=== PATIENT | female | born 1940 | race Caucasian/White ===

== ENCOUNTER 2023-11-24 06:14 | Inpatient (IN) | payer MEDICARE, OTHER, SELFPAY ==
[2023-11-18 09:09] LABS: Hematocrit 44.3 % (37.0-47.0); Hemoglobin 15.2 g/dL (12.0-16.0); Mean Corp Hgb Conc. 34.3 g/dL (33.0-37.0); Mean Corpuscular Hgb 31.5 pg (27.0-31.0); Mean Corpuscular Volume 91.7 fL (81.0-99.0); Mean Platelet Volume 10.8 fL (7.4-10.4); Platelet Count 271 10^3/uL (130-400); Red Blood Cell Count 4.83 10^6/uL (4.20-5.40); Red Cell Dist. Width 13.2 % (11.5-14.5); White Blood Cell Count 6.5 10^3/uL (4.8-10.8)
[2023-11-18 09:16] LABS: INR 1.03; PT 13.3 Sec (11.4-14.6)
[2023-11-18 09:17] LABS: APTT 33.2 Sec (23.4-35.0)
[2023-11-18 09:30] LABS: ALT (SGPT) 14 U/L (0-35); AST (SGOT) 20 U/L (14-36); Albumin 4.1 g/dl (3.5-5.0); Alkaline Phosphatase 89 U/L (38-126); Blood Urea Nitrogen 16 mg/dl (7-17); Calcium 10.1 mg/dl (8.4-10.2); Carbon Dioxide 27 mmol/L (22-30); Chloride 102 mmol/L (98-107); Glucose 97 mg/dl (70-99); Potassium 3.9 mmol/L (3.5-5.1); Sodium 138 mmol/L (135-145); Total Bilirubin 0.8 mg/dl (0.2-1.3); Total Protein 7.1 g/dl (6.3-8.2); eGFR > 60.00
--- NOTE | 2023-11-18 13:25 | PTCARENOTE ---
Patients 2/2 EKG abnomral- reviewed by Dr. Hill- no additional interventions required.
[2023-11-18 14:52] VITALS: BMI 24.6
[2023-11-24] VITALS (18 sets, daily range): BP systolic 40–130; BP diastolic 50–101; BMI 24.6
[2023-11-24] MEDS: NEURONTIN 600 MG PO (06:28)
[2023-11-24] MEDS: ENTEREG 12 MG PO (06:28)
[2023-11-24] MEDS: TYLENOL 1000 MG PO (06:29)
[2023-11-24] MEDS: HEPARIN 5000 UNITS SC (06:29)
[2023-11-24] MEDS: NORMOSOL-R 1000 IV ×3 (06:59→21:31)
--- NOTE | 2023-11-24 13:10 | W.IMMPOSTOP ---
Addendum entered and electronically signed by Aly Funk MD 11/24/23 15:30:
In addition, 2 ovarian cysts were found. Dr. Kerwin Morales was consulted intraoperatively and robotically removed them. Patient family was made aware.
Patient's family updated in recovery room after the procedure.
Original Note:
Surgical Immed Post Op Note
-
Primary Surgeon: Aly Funk MD
Assisting Surgeon: Monserrat Sanford PA-C, Shan ECHEVARRIA
Pre-op Diagnosis: sigmoid diverticulitis
Post-op Diagnosis: sigmoid diverticulitis
Procedure Performed: 1) robotic sigmoidectomy 2) splenic flexure takedown 3) flexible sigmoidectomy
Anesthesia Type: general
Specimen / Cultures: sigmoid colon
Estimated Blood Loss: 100ml
Complications: none
Operative Findings: inflammatory adhesions
danika drain in pelvis
right stent removed, left stent remaining
[2023-11-24 14:16] LABS: % Basophils 0.2 % (0-2); % Immature Granulocytes 0.2 % (0-0.5); % Monocytes 3.5 % (1.7-9.3); % Neutrophils 92.1 % (42.2-75.2); Absolute Lymphocytes 0.4 10^3/uL (1.2-3.4); Absolute Monocytes 0.3 10^3/uL (0.1-0.6); Absolute Neutrophils 8.6 10^3/uL (1.4-6.5); Hematocrit 39.4 % (37.0-47.0); Hemoglobin 13.7 g/dL (12.0-16.0); Mean Corp Hgb Conc. 34.8 g/dL (33.0-37.0); Mean Corpuscular Hgb 32.2 pg (27.0-31.0); Mean Corpuscular Volume 92.7 fL (81.0-99.0); Mean Platelet Volume 10.1 fL (7.4-10.4); Nucleated Red Blood Cells % 0 %; Platelet Count 224 10^3/uL (130-400); Red Blood Cell Count 4.25 10^6/uL (4.20-5.40); Red Cell Dist. Width 13.1 % (11.5-14.5); White Blood Cell Count 9.3 10^3/uL (4.8-10.8)
[2023-11-24 14:33] LABS: Chloride 102 mmol/L (98-107)
[2023-11-24 14:36] LABS: Blood Urea Nitrogen 9 mg/dl (7-17); Calcium 7.6 mg/dl (8.4-10.2); Carbon Dioxide 26 mmol/L (22-30); Estimated Creatinine Clearance 48 ml/min; Glucose 182 mg/dl (70-99); Potassium 3.1 mmol/L (3.5-5.1); Sodium 134 mmol/L (135-145); eGFR > 60.00
[2023-11-24] MEDS: KCL 160 MEQ IV (15:23)
[2023-11-24] MEDS: TORADOL 10 MG IV ×2 (15:30→21:29)
[2023-11-24] MEDS: TYLENOL PO ×2 (16:22→21:30)
--- NOTE | 2023-11-24 20:30 | PTCARENOTE ---
resumed care of pt laying in bed sleeping. Pt arousable to voice. Pt denies any complaints of pain, only reports being tired. Pt noted to have very dry lips. Sip of water offered, pt took few sips of water without difficulty. Pt follows all
commands. Moves all extremities. POC 99% on 3 LO2 NC. Lungs dec. Root cath with urinary stent in place draining bloody urine. Right ASHLIE drain in place draining serous sangiunous drainage. 5 abd lap sites open to air with surg glue in place. Pt
repositioning self per comfort. Vital signs stable. Will continue to monitor.
[2023-11-25] VITALS (8 sets, daily range): BP systolic 93–125; BP diastolic 52–63; PULSE 72; O2SAT 95; BMI 25.4
[2023-11-25] MEDS: TYLENOL PO ×2 (00:04→06:44)
[2023-11-25] MEDS: TORADOL 10 MG IV ×4 (01:30→20:15)
[2023-11-25 04:54] LABS: % Basophils 0.1 % (0-2); % Immature Granulocytes 0.4 % (0-0.5); % Lymphocytes 5.8 % (20.5-51.1); % Monocytes 4.8 % (1.7-9.3); % Neutrophils 88.9 % (42.2-75.2); Absolute Lymphocytes 0.6 10^3/uL (1.2-3.4); Absolute Monocytes 0.5 10^3/uL (0.1-0.6); Absolute Neutrophils 8.4 10^3/uL (1.4-6.5); Hematocrit 37.3 % (37.0-47.0); Hemoglobin 12.7 g/dL (12.0-16.0); Mean Corpuscular Hgb 31.8 pg (27.0-31.0); Mean Corpuscular Volume 93.3 fL (81.0-99.0); Mean Platelet Volume 10.3 fL (7.4-10.4); Nucleated Red Blood Cells % 0 %; Platelet Count 229 10^3/uL (130-400); Red Cell Dist. Width 13.2 % (11.5-14.5); White Blood Cell Count 9.4 10^3/uL (4.8-10.8)
[2023-11-25 05:30] LABS: Blood Urea Nitrogen 13 mg/dl (7-17); Calcium 7.9 mg/dl (8.4-10.2); Carbon Dioxide 28 mmol/L (22-30); Chloride 99 mmol/L (98-107); Estimated Creatinine Clearance 42 ml/min; Glucose 143 mg/dl (70-99); Potassium 4.1 mmol/L (3.5-5.1); Sodium 137 mmol/L (135-145); eGFR > 60.00
[2023-11-25] MEDS: CARDIZEM CD 120 MG PO (09:09)
[2023-11-25] MEDS: ALDACTONE 12.5 MG PO (09:11)
[2023-11-25] MEDS: ENTEREG 12 MG PO ×2 (09:12→20:15)
[2023-11-25] MEDS: TYLENOL 650 MG PO ×4 (09:12→20:16)
[2023-11-25] MEDS: NORMOSOL-R 1000 IV (09:30)
--- NOTE | 2023-11-25 10:26 | W.PN.CRS1 ---
Addendum entered and electronically signed by Shan Nguyễn MD 11/25/23 16:51:
For document clarification:
Add to A/P
-Hypokalemia, s/p [id number]; now resolved
Original Note:
Today's Communication / Plan
-
Clear liquids
Lovenox for DVT PPx
Remaining stent out, continue Root
Consult PT for early mobilization
Assessment/Plan
-
83-year-old female with PMH of ADELA/subclavian artery stenosis, BPPV, HTN, psoriasis, former smoker and diverticulitis, presenting for elective surgery
POD 1 robotic sigmoidectomy, intraOp HUMAN RESOURCES CLERK consult for ovarian cystectomy
Doing well, pain controlled, no bowel function
AFVSS, abdomen appropriately tender, incisions C/D/I
WBC 9.4, Hb 12.7 from 13.7, stent removed at bedside
� Advance to clear liquids
� Pain control with Tylenol Toradol and morphine as needed, continue Entereg
� Start Lovenox for DVT PPx
� Continue Root for 1 more day due to bloody urine
� OOB/IS, recommend PT
� Continue ASHLIE to bulb suction
Subjective Data
Subjective Data
Date of Service: November 25, 2023
No overnight events.
Pain controlled.
Denies nausea/vomiting.
-flatus -BMs + Root (bloody urine)
Objective Data
-
Vital Signs
Temp Pulse Resp BP Pulse Ox
98.4 F 80 14 125/60 100
11/25/23 07:39 11/25/23 07:39 11/25/23 07:39 11/25/23 07:39 11/25/23 07:39
Intake & Output
11/24/23 11/25/23 11/26/23
06:59 06:59 06:59
Intake Total 1200 / 1200
Output Total 1730 / 173
Balance -530 / -530
Intake:
IV fluids (Total) 1200 / 1200
Normosol 300 / 300
Output:
Drain Output (Total)
Right Abdomen Roger-Chao
Urine, Root 1525 / 1525
Lab Results
11/25/23 04:25
11/25/23 04:25
Physical Exam
-
General: No Acute Distress and AOx3
HEENT: Grossly Normal
Abdomen: Soft, Non Distended, Tender (Appropriately tender near incisions), No Guarding, No Rebound and Other (ASHLIE - 205 mL serosang)
Skin: Warm and Dry
Wound: No Signs of Infection, Dressing in Place (Dermabond) and No Skin Erythema
[2023-11-25] MEDS: MORPHINE SULFATE 4 MG IV (13:50)
--- NOTE | 2023-11-25 14:40 | PN.CDI ---
CDI
- -
CDI:
Physician Documentation Request
Admit Date: 11/24/23 06:14
Dear Doctor Gopi,
Clinical Indicators:
Patient admitted with diverticulitis; s/p Robotic Sigmoidectomy 11/24.
11/24 KCL 20 meq IV rider x 1.
Potassium level:
11/24/23
14:06
Potassium 3.1 L
Based on the above, could you clarify in the progress notes, the appropriate diagnosis, if significant, that supports the above abnormalities and additional evaluation, monitoring and/or treatment rendered:
Hypokalemia
Abnormal lab value, clinically insignificant
Other
Use of terms such as suspected, likely, concern for, or probable (associated with a specific diagnosis that is being evaluated, monitored, or treated as if it exists) are acceptable and can be coded in the inpatient setting, when documented at the
time of discharge.
Thank you,
EMILIANA Domingo RN
CDI Specialist
available via tiger text
Please use your independent medical judgment in providing your response.
--- NOTE | 2023-11-25 14:50 | CM ---
Chart reviewed. Spoke with pt and her daughter at bedside
Pt reports lives with her in a 2 story home.
Independent, prepares meals
DME - elevated toilet seat, walker, cane, wheel chair, shower chair
Denies past SNF. Has has [facility] in past
PCP - Dr. Rojelio Figueroa
Pharm - [facility]
Will have ride home at d/c
Plan - Anticipate home - needs tbd
[2023-11-25] MEDS: LOVENOX 40 MG SC (17:25)
[2023-11-26] MEDS: TYLENOL PO ×3 (01:05→12:08)
[2023-11-26] MEDS: TORADOL 10 MG IV ×4 (02:43→20:14)
[2023-11-26 06:00] VITALS: BMI 24.4
[2023-11-26 07:00] VITALS: BP 134/65
[2023-11-26] MEDS: TYLENOL 650 MG PO ×3 (08:03→20:14)
[2023-11-26] MEDS: ALDACTONE 12.5 MG PO (08:04)
[2023-11-26] MEDS: ENTEREG 12 MG PO (08:08)
[2023-11-26] MEDS: CARDIZEM CD 120 MG PO (08:08)
--- NOTE | 2023-11-26 10:43 | W.PN.CRS1 ---
Today's Communication / Plan
-
FLD
OOB/Ambulate
Assessment/Plan
-
83-year-old female with PMH of diverticulitis now POD #2 robotic sigmoidectomy with ovarian cystectomy by FURNACE SETTER
AFVSS
+flatus/stool
� Advance to full liquids
� Pain control with Tylenol Toradol and Tramadol as needed
- Stop Entereg
� SCDs/Lovenox for DVT PPx
� Void trial today
� OOB/IS/PT eval appreciate. CM following for [facility] arrangements
- ASHLIE out prior to d/c
Subjective Data
Procedure
11/24/23
Robotic sigmoidectomy. Takedown of splenic flexure. Flexible sigmoidoscopy.
Robotic-assisted bilateral salpingo-oophorectomy by urogyn.
Subjective Data
Date of Service: November 26, 2023
Patient seen and evaluated at bedside with Dr. Funk. OOB to chair. Reports passage of flatus and some stool today. Due to void since removal of trujillo. Denies n/v. Tolerated clear liquid breakfast. Coughed up some sputum today but otherwise no
respiratory complaints
Objective Data
-
Vital Signs
Temp Pulse Resp BP Pulse Ox
97.7 F 66 18 142/71 96
11/26/23 07:00 11/26/23 08:08 11/26/23 07:00 11/26/23 08:08 11/26/23 07:00
Intake & Output
11/25/23 11/26/23 11/27/23
06:59 06:59 06:59
Intake Total 1200 / 1200 1170 / 1170
Output Total 1730 / 1730 2820 / 2820
Balance -530 / -530 -1650 / -1650
Intake:
Oral fluids 420 / 420
IV fluids (Total) 1200 / 1200 750 / 750
Normosol 300 / 300
Output:
Drain Output (Total)
Right Abdomen Roger-Chao
Urine, Trujillo 1525 / 1525 2725 / 2725
Lab Results
11/25/23 04:25
11/25/23 04:25
Physical Exam
-
General: No Acute Distress
Abdomen: Soft, Distended (very minimal) and Tender (expected incisional tenderness)
Skin: Warm and Dry
Wound: Dressing Dry and Other (ASHLIE with SSF)
Incision: Clear, Dry, Intact (glue intact) and No Skin Erythema
[2023-11-26 15:00] VITALS: BP 142/70
[2023-11-26] MEDS: LOVENOX 40 MG SC (17:03)
[2023-11-26 23:25] VITALS: BP 131/61
[2023-11-27 00:18] VITALS: BP 131/61
[2023-11-27] MEDS: TYLENOL PO ×2 (00:44→05:49)
[2023-11-27] MEDS: TORADOL 10 MG IV ×2 (02:42→08:27)
[2023-11-27 03:40] VITALS: BMI 24.7
[2023-11-27 07:09] VITALS: BP 123/75
[2023-11-27] MEDS: TYLENOL 650 MG PO (08:27)
[2023-11-27] MEDS: CARDIZEM CD 120 MG PO (08:27)
[2023-11-27] MEDS: ALDACTONE 12.5 MG PO (08:27)
--- NOTE | 2023-11-27 08:45 | PTCARENOTE ---
Tolerated breakfast. Denies abdominal complaints. Leticia GRACE at bedside. ASHLIE drain removed. Patient eager for discharge.
--- NOTE | 2023-11-27 09:06 | W.PN.CRS1 ---
Addendum entered and electronically signed by Shan Nguyễn MD 11/27/23 17:26:
I saw and examined the patient.
The LEARNING COORDINATOR's note was reviewed and I agree with the note.
Comment:
83-year-old female with PMH of ADELA/subclavian artery stenosis, BPPV, HTN, psoriasis, former smoker and diverticulitis, presenting for elective surgery
POD 3 robotic sigmoidectomy, intraOp DECISION SUPPORT MANAGER consult for ovarian cystectomy
Tolerating a diet pain controlled, having bowel function
AFVSS, abdomen appropriately tender, incisions C/D/I; ASHLIE removed at bedside
�Continue low residue
� Pain control with Tylenol Toradol and tramadol as needed, continue Entereg
� Lovenox for DVT PPx
� OOB/IS, recommend PT
� Okay for discharge today
Original Note:
Today's Communication / Plan
-
Dispo planning
Assessment/Plan
-
83-year-old female with PMH of diverticulitis now POD #3 robotic sigmoidectomy with ovarian cystectomy by DECISION SUPPORT MANAGER
AFVSS
+flatus/stool
Tolerating LRD
Voiding without difficulty
� Continue LRD
� Pain control with Tylenol, Toradol and Tramadol as needed
� SCDs/Lovenox for DVT PPx
� OOB/IS/PT eval appreciated. Plan for return to home.
- ASHLIE removed today
- Discharge to home.
Subjective Data
Procedure
11/24/23
Robotic sigmoidectomy. Takedown of splenic flexure. Flexible sigmoidoscopy.
Robotic-assisted bilateral salpingo-oophorectomy by urogyn.
Subjective Data
Date of Service: November 27, 2023
Patient seen and examined at bedside. Tolerating diet. Passed some loose stools and flatus. Denies n/v. Ambulating.
Objective Data
-
Vital Signs
Temp Pulse Resp BP Pulse Ox
98.0 F 87 14 123/75 97
11/27/23 07:09 11/27/23 07:09 11/27/23 07:09 11/27/23 07:09 11/27/23 07:09
Intake & Output
11/26/23 11/27/23 11/28/23
06:59 06:59 06:59
Intake Total 1170 / 1170 1040 / 1040 480 / 480
Output Total 2820 / 2820
Balance -1650 / -1650 970 / 970 480 / 480
Intake:
Oral fluids 420 / 420 1040 / 1040 480 / 480
IV fluids (Total) 750 / 750
Output:
Drain Output (Total)
Right Abdomen Roger-Chao
Urine, Root 2725 / 2725
Other:
Number of approximated MODERATE 5 3
amounts of urine
Lab Results
11/25/23 04:25
11/25/23 04:25
Physical Exam
-
General: No Acute Distress
Abdomen: Soft, Non Distended and Tender (expected incisional tenderness)
Skin: Warm and Dry
Wound: Dressing Dry and Other (ASHLIE with SSF (removed))
Incision: Clear, Dry, Intact (glue intact) and No Skin Erythema
--- NOTE | 2023-11-27 09:12 | W.DCSUMMARY ---
Discharge Summary
Discharge Data
Date of Admission: 11/24/23
Date of Discharge: 11/27/23
-
Pending Results: No
Hospital Course
This is an 83 yo female with a history of diverticulitis who presented for surgical management with robotic sigmoidectomy with takedown of the splenic flexure. Cystoscopy with stent placement for identification of the ureters was preformed by
urology with intraoperative consult to urogynecology given noted ovarian cysts with robotic assisted bilateral salpingo-oophorectomy preformed. She tolerated these procedures well. Diet was able to be advanced and well tolerated in the immediate
post operative period. Stents and trujillo removed in stepwise fashion with successful voiding trial and stable labs. ASHLIE drain was removed at bedside prior to discharge. She was evaluated by PT during her stay and cleared for return to home. She was
discharged to home with her daughter with outpatient follow up planned in the coming weeks.
Discharge Plan
-
Patient Disposition: Home (Routine Discharge)
Discharge Diagnosis/Procedures: 1) robotic sigmoidectomy 2) splenic flexure takedown 3) flexible sigmoidectomy 4) Robotic-assisted bilateral salpingo-oophorectomy.
Condition: Good
Diet: Low Residue
Activity: No strenuous activity
Additional Activity: No lifting over 10lbs
Driving Restrictions: Not until seen by your Dr
Bathing Restrictions: OK to Shower
Wound Care: Allow glue to naturally fall off. Do not pick at incisions.
Instructions: Low Fiber Diet
Referrals:
Aly Funk MD [Active] - in two weeks
Yousif Figueroa MD [Family Provider] -
Prescriptions:
New
acetaminophen [acetaminophen] 325 mg tablet
650 mg PO Q4HPRN PRN (Reason: mild pain) Qty: 1 0RF
tramadol 50 mg tablet
25 - 50 mg PO Q6HPRN PRN (Reason: severe pain/breakthrough pain) Qty: 15 0RF
ibuprofen 200 mg tablet
400 - 600 mg PO Q6HPRN PRN (Reason: moderate pain) Qty: 1 0RF
Continued
aspirin 81 mg Tablet,Delayed Release (Dr/Ec)
81 mg PO DAILY
spironolactone 25 mg Tablet
12.5 mg PO DAILY
diltiazem HCl 120 mg Capsule,Extended Release 24 Hr
120 mg PO DAILY
Discontinued
metronidazole 500 mg Tablet
500 mg PO TID
neomycin 500 mg Tablet
500 mg PO TID
Sutab 1.479-0.188- 0.225 gram Tablet
0 tab PO PER PKG DIR
Discharge Orders:
Discharge Patient (As Directed); Ordered 11/27/23
Ordered By: Leticia Stoner
Discharge Date and Time
Discharge Date/Time: 11/27/23 11:08
== END 2023-11-27 11:08 | disposition home or self-care (01) | DRG 331 ==
LOC: 2 SOUTH 06:14
PROVIDERS: Obstetrics & Gynecology; Physician Assistant; Urology; ADMITTING PHYSICIAN Surgery; FAMILY PHYSICIAN Internal Medicine
PROC: 0DBN4ZZ Excision of Sigmoid Colon, Percutaneous Endoscopic Approach (ICD-10-PCS; 2023-11-24)
PROC: 8E0W4CZ Robotic Assisted Procedure of Trunk Region, Percutaneous Endoscopic Approach (ICD-10-PCS; 2023-11-24)
PROC: 0UT74ZZ Resection of Bilateral Fallopian Tubes, Percutaneous Endoscopic Approach (ICD-10-PCS; 2023-11-24)
PROC: 3E0K8KZ Introduction of Other Diagnostic Substance into Genitourinary Tract, Via Natural or Artificial Opening Endoscopic (ICD-10-PCS; 2023-11-24)
PROC: 0UT24ZZ Resection of Bilateral Ovaries, Percutaneous Endoscopic Approach (ICD-10-PCS; 2023-11-24)
PROC: 0T788DZ Dilation of Bilateral Ureters with Intraluminal Device, Via Natural or Artificial Opening Endoscopic (ICD-10-PCS; 2023-11-24)
DX: K57.32 Diverticulitis of large intestine without perforation or abscess without bleeding (principal); N83.201 Unspecified ovarian cyst, right side; N83.202 Unspecified ovarian cyst, left side; E87.6 Hypokalemia; K66.0 Peritoneal adhesions (postprocedural) (postinfection); N81.10 Cystocele, unspecified
CPT/HCPCS: 88305; 88307; 36415; 80048; 80053; 83036; 85025; 85027; 85610; 85730; 86850; 86900; 86901; 97161; 97530; 99406; J1335